=== PATIENT | female | born 1935 | race Caucasian/White ===

== ENCOUNTER → 2017-10-07 12:44 | Outpatient (CLI) | payer MEDICARE, SELFPAY ==
--- NOTE | 2017-10-07 12:48 | CT_ITS ---
STUDY: CT CHEST/THORAX WITHOUT CONTRAST REASON FOR EXAM: Female, 82 years old. Lung nodule. RADIATION DOSAGE (If Supplied By Facility): CTDIvol = ( 6.61 ) mGy, DLP = ( 237.80 ) mGycm TECHNIQUE: Transaxial imaging was performed without the administration of intravenous contrast material. Multiplanar coronal and sagittal images were reformatted. Individualized dose optimization techniques were used for this CT. COMPARISON: PA and lateral chest x-ray May 07, 2017. PET CT April 08, 2017 was not available for review at the time of this dictation. FINDINGS: There are tree-in-bud interstitial densities consistent with acute versus chronic inflammatory change and subsegmental distributions of the posterolateral and inferolateral right upper lobe, the anterolateral lingula of left upper lobe and, to a lesser degree, in the posterolateral periphery of the right lower lobe subcentimeter nodular densities are sometimes noted at the margins of these infiltrates, for example in the lateral inferior right upper lobe on series 4 image 51, series 602 image 123, as well as the lateral lingula at the mid chest on series 4 image 59, series 602 images 117-124. Minor pleural parenchymal scarring also seen in the superior sulci, greater on the right. There is a small dependent right pleural effusion that extends along the anterolateral right base. Mildly lobulated 11 x 7.5 x 12 mm soft tissue nodule seen in the anterolateral periphery of the right middle lobe. 4 mm pleural-based soft tissue nodule seen in the posterior right lower lobe on series 4 image 73. 4.5 mm rounded solid nodule seen in the medial lingula of left upper lobe on series 4 image 54, series 601 image 163. There are faint 5-6 mm groundglass nodular densities in the mid to posterior right upper lobe on series 4 images 27, 32, and 38. Similar groundglass nodule suggested in the anterior right upper lobe on images 44 and 55. Normal heart size and pericardium. There are calcifications of the coronary arteries. There are a few nonspecific lymph nodes in the precarinal tissues and aorticopulmonary window. Normal hilar regions. Normal unenhanced pulmonary arteries. There is atherosclerotic calcification of the aortic arch and descending thoracic aorta. There is demineralization of the thoracic spine. There are multi-level degenerative changes of the thoracic spine. There is no demonstrated abnormality of the visualized upper abdomen. CT/Chest without Contrast IMPRESSION: 1. Bilateral pulmonary nodules, as described, the largest in the anterolateral periphery of the middle lobe. Comparison reading can be made when PET/CT images become available. 2. There are subsegmental tree-in-bud inflammatory interstitial densities scattered in the lung villafana, as described. Small dependent right pleural effusion also present. 3. A few 5-6 mm groundglass nodular densities in the right lung, as noted above, may be a component of inflammatory changes well. Other pathology not excluded, however, and again, these can be essentially compared with PET/CT. 4. Atherosclerotic calcifications of the coronary arteries and thoracic aorta. 5. Demineralization of the osseous structures. Multilevel degenerative changes of the spine. Electronically Signed: Latrell Stinson MD at 13:32 EDT , Service support ,
== END ==
PROVIDERS: Family Provider Family Medicine; PCP Family Medicine; Visit Provider Internal Medicine Pulmonary Disease
DX: R91.1 Solitary pulmonary nodule (principal)
CPT/HCPCS: 71250